=== PATIENT | male | born 1995 | race Caucasian/White ===

== ENCOUNTER 2016-09-23 18:29 | Emergency (ER) | payer BC ==
[~2016-09-23] VITALS: Ht 157.5 cm; Wt 51.8 kg
[2016-09-23 22:01] VITALS: BP 115/79
== END 2016-09-23 22:03 | disposition home or self-care (01) ==
LOC: ED 21:50
DX: N45.1 Epididymitis (principal)
CPT/HCPCS: 76870; 81001

== ENCOUNTER 2017-09-16 17:24 | Emergency (ER) | payer BC, OTHER ==
[~2017-09-16] VITALS: Ht 160 cm; Wt 50.3 kg
[2017-09-16 17:27] VITALS: BP 101/68
[2017-09-16 18:16] LABS: BASOPHILS # (AUTO) 0.01 x10^3/uL (0-0.1); BASOPHILS % (AUTO) 0 % (0-1); EOSINOPHILS # (AUTO) 0.09 x10^3/uL (0-0.4); EOSINOPHILS % (AUTO) 1 % (1-7); LYMPHOCYTES # (AUTO) 1.97 x10^3/uL (1-3.4); LYMPHOCYTES % (AUTO) 27 % (22-44); MD NO; MEAN CORPUSCULAR HEMOGLOBIN 28.9 pg (27.5-34.5); MEAN CORPUSCULAR HGB CONC 34.2 g/dL (33.2-36.2); MEAN CORPUSCULAR VOLUME 84.7 fL (81-97); MEAN PLATELET VOLUME 8.5 fL (7.4-10.4); MONOCYTES % (AUTO) 7 % (2-9); NEUTROPHILS # (AUTO) 4.61 x10^3/uL (1.8-6.8); NEUTROPHILS % (AUTO) 64 % (42-75); PLATELET COUNT 227 x10^3/uL (130-400); RED BLOOD COUNT 5.57 x10^6/uL (4.38-5.82)
[2017-09-16 18:27] LABS: MICROSCOPIC NOT IND
[2017-09-16 18:28] LABS: ALANINE AMINOTRANSFERASE 22 U/L (12-78); ALBUMIN 4.4 g/dL (3.4-5.0); ANION GAP 7 mmol/L (5-15); CALCIUM 8.6 mg/dL (8.5-10.1); CHLORIDE 105 mmol/L (98-107); CREATININE 1.05 mg/dL (0.7-1.3)
[2017-09-16 18:29] LABS: CULTURE INDICATED? NO
[2017-09-16 18:31] LABS: ALKALINE PHOSPHATASE 60 U/L (45-117); BILIRUBIN,TOTAL 1.1 mg/dL (0.2-1.0)
[2017-09-16] MEDS ORDERED: MAALOX/HYOSCYAMINE/LIDOCAINE 45 ML BTL ONE (18:47)
[2017-09-16] MEDS ORDERED: MAALOX/HYOSCYAMINE/LIDOCAINE 45 ML BTL PO ONE (19:00)
== END 2017-09-16 19:23 | disposition home or self-care (01) ==
LOC: ED 18:43
DX: R10.12 Left upper quadrant pain (principal); R10.13 Epigastric pain
CPT/HCPCS: 36415; 74021; 80053; 81003; 83690; 85025; 99285